=== PATIENT | female | born 1940 | race Caucasian/White ===

== ENCOUNTER → 2018-11-24 | Outpatient (REF) | payer MEDICARE, BC ==
[2018-11-24 12:59] LABS: AMORPHOUS SEDIMENT SMALL (NEGATIVE); APPEARANCE, URINE CLEAR (CLEAR); BACTERIA, URINE AUTO NEGATIVE (NEGATIVE); BILIRUBIN, URINE AUTO NEGATIVE (NEGATIVE); BLOOD, URINE BLOOD NEGATIVE (NEGATIVE); COLOR, URINE AMBER (YELLOW); GLUCOSE, URINE (UA) AUTO NEGATIVE (NEGATIVE); KETONE, URINE AUTO NEGATIVE (NEGATIVE); LEUKOCYTE ESTERASE, URINE AUTO NEGATIVE (NEGATIVE); MUCUS, URINE SMALL (NEGATIVE); NITRITE, URINE AUTO POSITIVE (NEGATIVE); PROTEIN, URINE AUTO NEGATIVE (NEGATIVE); RBC, URINE AUTO 1 /HPF (0-3); SPECIFIC GRAVITY URINE AUTO 1.008 (1.002-1.035); SQUAMOUS EPITHELIAL CELL UR AU 1 /HPF (0-6); WBC, URINE AUTO 4 /HPF (0-3)
== END ==
LOC: M LAB REF 12:25
PROVIDERS: ATTEND Obstetrics & Gynecology
DX: Z87.440 Personal history of urinary (tract) infections (principal); R39.89 Other symptoms and signs involving the genitourinary system

== ENCOUNTER → 2019-01-10 | Outpatient (REF) | payer MEDICARE, BC ==
[2019-01-10 19:41] LABS: APPEARANCE, URINE CLOUDY (CLEAR); BACTERIA, URINE AUTO 1+ (NEGATIVE); BILIRUBIN, URINE AUTO NEGATIVE (NEGATIVE); BLOOD, URINE BLOOD NEGATIVE (NEGATIVE); CALCIUM OXALATE CRYSTALS LARGE; COLOR, URINE YELLOW (YELLOW); GLUCOSE, URINE (UA) AUTO NEGATIVE (NEGATIVE); KETONE, URINE AUTO NEGATIVE (NEGATIVE); LEUKOCYTE ESTERASE, URINE AUTO NEGATIVE (NEGATIVE); NITRITE, URINE AUTO NEGATIVE (NEGATIVE); PROTEIN, URINE AUTO NEGATIVE (NEGATIVE); RBC, URINE AUTO 0 /HPF (0-3); SPECIFIC GRAVITY URINE AUTO 1.006 (1.002-1.035); SQUAMOUS EPITHELIAL CELL UR AU 2 /HPF (0-6); UROBILINOGEN, URINE AUTO 0.2 mg/dL (0.0-2.0); WBC, URINE AUTO 0 /HPF (0-3)
== END ==
LOC: M LAB REF 16:43
PROVIDERS: ATTEND Obstetrics & Gynecology
DX: N30.21 Other chronic cystitis with hematuria (principal)

== ENCOUNTER → 2019-11-19 | Outpatient (REF) | payer MEDICARE, BC ==
[2019-11-19 19:21] LABS: APPEARANCE, URINE HAZY (CLEAR); BACTERIA, URINE AUTO NEGATIVE (NEGATIVE); BILIRUBIN, URINE AUTO NEGATIVE (NEGATIVE); BLOOD, URINE BLOOD NEGATIVE (NEGATIVE); CALCIUM OXALATE CRYSTALS SMALL; COLOR, URINE YELLOW (YELLOW); GLUCOSE, URINE (UA) AUTO NEGATIVE (NEGATIVE); KETONE, URINE AUTO NEGATIVE (NEGATIVE); LEUKOCYTE ESTERASE, URINE AUTO TRACE (NEGATIVE); MUCUS, URINE SMALL (NEGATIVE); NITRITE, URINE AUTO NEGATIVE (NEGATIVE); PROTEIN, URINE AUTO NEGATIVE (NEGATIVE); RBC, URINE AUTO 2 /HPF (0-3); SQUAMOUS EPITHELIAL CELL UR AU 2 /HPF (0-6); TRANSITIONAL EPITHELIAL AUTO <1 /HPF; UROBILINOGEN, URINE AUTO 0.2 mg/dL (0.0-2.0); WBC, URINE AUTO 4 /HPF (0-3)
== END ==
LOC: M LAB REF 16:48
PROVIDERS: ATTEND Obstetrics & Gynecology
DX: N39.0 Urinary tract infection, site not specified (principal); N39.3 Stress incontinence (female) (male)

== ENCOUNTER → 2020-01-14 | Outpatient (REF) | payer MEDICARE, BC ==
[2020-03-01 19:24] LABS: APPEARANCE, URINE CLEAR (CLEAR); BACTERIA, URINE AUTO 1+ (NEGATIVE); BILIRUBIN, URINE AUTO NEGATIVE (NEGATIVE); BLOOD, URINE BLOOD NEGATIVE (NEGATIVE); COLOR, URINE STRAW (YELLOW); GLUCOSE, URINE (UA) AUTO NEGATIVE (NEGATIVE); KETONE, URINE AUTO NEGATIVE (NEGATIVE); LEUKOCYTE ESTERASE, URINE AUTO NEGATIVE (NEGATIVE); NITRITE, URINE AUTO NEGATIVE (NEGATIVE); PROTEIN, URINE AUTO NEGATIVE (NEGATIVE); RBC, URINE AUTO 0 /HPF (0-3); SPECIFIC GRAVITY URINE AUTO 1.005 (1.002-1.035); SQUAMOUS EPITHELIAL CELL UR AU 0 /HPF (0-6); UROBILINOGEN, URINE AUTO 0.2 mg/dL (0.0-2.0); WBC, URINE AUTO 1 /HPF (0-3)
== END ==
LOC: M LAB REF 09:59
PROVIDERS: ATTEND Obstetrics & Gynecology
DX: N39.0 Urinary tract infection, site not specified (principal)

== ENCOUNTER → 2021-11-04 | Outpatient (CLI) | payer MEDICARE, BC | LOC: M PLAIMG 15:08 | PROVIDERS: ATTEND Internal Medicine Pulmonary Disease | DX: R06.00 Dyspnea, unspecified (principal) ==

== ENCOUNTER 2021-11-17 12:00 | Inpatient (IN) | payer MEDICARE, BC ==
[~2021-11-17] VITALS: Ht 160 cm; Wt 79.0 kg
[2021-11-17 12:52] LABS: BASO # 0.1 10^3/uL (0.0-0.2); BASO % 0.7 % (0.0-1.0); EOS # 0.2 10^3/uL (0.0-0.5); EOS % 2.9 % (0.0-3.0); HEMATOCRIT 37.2 % (36.0-47.0); HEMOGLOBIN 12.4 g/dl (12.0-15.5); LYMPH # 1.9 10^3/uL (1.5-5.0); MEAN CORPUSCULAR HGB CONC 33.3 g/dl (32.0-36.5); MEAN CORPUSCULAR VOLUME 89.9 fl (80.0-96.0); MONO # 0.8 10^3/uL (0.0-0.8); MONO % 9.3 % (2.0-8.0); NEUTROPHILS % 62.1 % (36.0-66.0); PLATELET COUNT, AUTOMATED 291 10^3/uL (150-450); RED BLOOD COUNT 4.14 10^6/uL (4.00-5.40); WHITE BLOOD COUNT 8.1 10^3/uL (4.0-10.0)
[2021-11-17 12:55] LABS: INR 0.93; PROTHROMBIN TIME 12.9 SECONDS (12.7-14.5)
[2021-11-17 12:56] LABS: PARTIAL THROMBOPLASTIN TIME 27.5 SECONDS (25.9-37.0)
[2021-11-17 12:58] LABS: ALBUMIN 3.8 GM/DL (3.2-5.2); ALT/SGPT 25 U/L (12-78); BILIRUBIN,DIRECT < 0.1 MG/DL (0.0-0.2); BILIRUBIN,TOTAL 0.3 MG/DL (0.2-1.0); LIPASE 148 U/L (73-393); TOTAL PROTEIN 6.6 GM/DL (6.4-8.2)
[2021-11-17] MEDS ORDERED: NS 2,350 ML in IV 1 EA IV ONE (13:15)
[2021-11-17] MEDS ORDERED: cefTRIAXone SOD 2 GM in D5W MINI-BAG PLUS 50 ML IV ONE (13:15)
[2021-11-17] MEDS ORDERED: ISOVUE-370 76% 100ML VIAL As Ordered ONE (13:19)
[2021-11-17] MEDS ORDERED: D5W 50ML As Ordered ONE ×2 (13:29→13:30)
[2021-11-17] MEDS ORDERED: ACETAMINOPHEN TAB 650MG DOSE (2X325MG) PO PRN (16:40)
[2021-11-17] MEDS ORDERED: MAALOX 30 ML SUSP *UDC PO PRN (16:40)
[2021-11-17] MEDS ORDERED: MOM 30ML SUSPENSION UDC PO PRN (16:40)
[2021-11-17] MEDS ORDERED: LEMB10TA PO (17:17)
[2021-11-17] MEDS ORDERED: DICY20TA20 PO (17:17)
[2021-11-17] MEDS ORDERED: DULO20CA27 PO (17:17)
[2021-11-17] MEDS ORDERED: FERR1TAB8 PO (17:17)
[2021-11-17] MEDS ORDERED: XIFA550T PO (17:17)
[2021-11-17] MEDS ORDERED: LEMB5TAB PO (17:17)
[2021-11-17] MEDS ORDERED: PROAAER10 INH (17:17)
[2021-11-17] MEDS ORDERED: LISI10TA22 PO (17:27)
[2021-11-17] MEDS ORDERED: LEVO75TA4 PO (17:27)
[2021-11-17] MEDS ORDERED: ESTR0.1C5 PV (17:27)
[2021-11-17] MEDS ORDERED: METH-855 PO (17:27)
[2021-11-17] MEDS ORDERED: PEPE50CA PO (17:27)
[2021-11-17] MEDS ORDERED: HOME MED LIST COMPLETE! XX SCH (17:30)
[2021-11-17 17:54] LABS: CK-MB VALUE MASS < 1.0 NG/ML (<3.6); CPK CREATINE PHOSPHOKINASE 33 U/L (26-192); MB/CK RELATIVE INDEX 3.03 (< OR =4)
[2021-11-17 22:20] VITALS: BP 136/73
[2021-11-18 06:00] VITALS: BP 135/74
[2021-11-18 06:26] LABS: HEMATOCRIT 33.2 % (36.0-47.0); HEMOGLOBIN 10.7 g/dl (12.0-15.5); MEAN CORPUSCULAR HEMOGLOBIN 29.6 pg (27.0-33.0); MEAN CORPUSCULAR HGB CONC 32.2 g/dl (32.0-36.5); PLATELET COUNT, AUTOMATED 240 10^3/uL (150-450); RED BLOOD COUNT 3.61 10^6/uL (4.00-5.40); WHITE BLOOD COUNT 7.2 10^3/uL (4.0-10.0)
[2021-11-18 06:57] LABS: CALCIUM LEVEL 8.5 MG/DL (8.8-10.2); CREATININE FOR GFR 1.09 MG/DL (0.55-1.30); GLOMERULAR FILTRATION RATE 51.4 (>32); MAGNESIUM LEVEL 1.8 MG/DL (1.8-2.4); POTASSIUM SERUM 3.3 MEQ/L (3.5-5.1)
[2021-11-18] MEDS ORDERED: POTASSIUM CHLORIDE 10MEQ SR TABLET PO ONE (07:30)
[2021-11-18] MEDS: ENOXAPARIN 40MG/0.4ML SYRINGE (J1650 PER 10MG) SC SCH (09:56)
[2021-11-18] MEDS ORDERED: ALBUTEROL 90 MCG/ACT 8GM HFA INHALER INH PRN (10:00)
[2021-11-18] MEDS ORDERED: DICYCLOMINE 10 MG CAP PO PRN (10:00)
[2021-11-18] MEDS ORDERED: SIMETHICONE 80MG CHEW TAB PO PRN (11:15)
[2021-11-18] MEDS: rifAXIMin 550 MG TAB (XIFAXAN) PO SCH ×3 (11:28→21:25)
[2021-11-18] MEDS: LEVOTHYROXINE 75MCG TABLET (0.075MG) PO SCH (11:29)
[2021-11-18 14:00] VITALS: BP 128/64
[2021-11-18] MEDS ORDERED: DULoxetine 20 MG CAP (CYMBALTA) PO SCH (21:00)
[2021-11-18 22:00] VITALS: BP 142/78
[2021-11-19 05:53] LABS: HEMATOCRIT 32.9 % (36.0-47.0); HEMOGLOBIN 10.8 g/dl (12.0-15.5); MEAN CORPUSCULAR HEMOGLOBIN 30.4 pg (27.0-33.0); MEAN CORPUSCULAR HGB CONC 32.8 g/dl (32.0-36.5); MEAN CORPUSCULAR VOLUME 92.7 fl (80.0-96.0); PLATELET COUNT, AUTOMATED 232 10^3/uL (150-450); RED BLOOD COUNT 3.55 10^6/uL (4.00-5.40); WHITE BLOOD COUNT 7.4 10^3/uL (4.0-10.0)
[2021-11-19 06:00] VITALS: BP 138/76
[2021-11-19] MEDS: LEVOTHYROXINE 75MCG TABLET (0.075MG) PO SCH (06:03)
[2021-11-19 06:24] LABS: CALCIUM LEVEL 9.3 MG/DL (8.8-10.2); CREATININE FOR GFR 1.09 MG/DL (0.55-1.30); GLOMERULAR FILTRATION RATE 51.4 (>32); MAGNESIUM LEVEL 1.9 MG/DL (1.8-2.4); POTASSIUM SERUM 3.6 MEQ/L (3.5-5.1)
[2021-11-19] MEDS ORDERED: SIME80TA16 PO (09:01)
[2021-11-19] MEDS: ENOXAPARIN 40MG/0.4ML SYRINGE (J1650 PER 10MG) SC SCH (09:20)
[2021-11-19 09:22] VITALS: BP 137/77
[2021-11-19] MEDS: rifAXIMin 550 MG TAB (XIFAXAN) PO SCH (09:22)
== END 2021-11-19 12:55 | disposition home or self-care (01) | DRG 392 ==
LOC: EDBD 12:00 → M ED 12:00 → M ED INP 16:37 → M MS5PR 22:04
PROVIDERS: ADMIT Family Medicine; ATTEND Family Medicine
DX: R10.9 Unspecified abdominal pain (principal); E87.2 Acidosis; I10 Essential (primary) hypertension; R06.02 Shortness of breath; E03.9 Hypothyroidism, unspecified; Z79.899 Other long term (current) drug therapy; Z88.8 Allergy status to other drugs, medicaments and biological substances; Z87.891 Personal history of nicotine dependence; Z66 Do not resuscitate

== ENCOUNTER → 2021-12-29 | Outpatient (CLI) | payer MEDICARE, BC ==
[~2021-12-29] MED LIST: DICY20TA20 PO; DULO20CA27 PO; ESTR0.1C5 PV; FERR1TAB8 PO; LEMB10TA PO; LEMB5TAB PO; LEVO75TA4 PO; LISI10TA22 PO; METH-855 PO; PEPE50CA PO; PROAAER10 INH; SIME80TA16 PO; XIFA550T PO
== END ==
LOC: M PLAIMG 11:00
PROVIDERS: ATTEND Internal Medicine Pulmonary Disease
DX: R06.00 Dyspnea, unspecified (principal)

== ENCOUNTER → 2022-01-20 | Outpatient (CLI) | payer MEDICARE, BC ==
[2022-01-20 17:46] LABS: C REACTIVE PROTEIN QUANTITATIV < 0.30 MG/DL (0.00-0.30); RHEUMATOID FACTOR QUANT < 10.0 IU/ML (<15.0)
[2022-02-02 15:07] LABS: ANA (HEP2) Positive (.); ANCA-ATYPICAL <1:20 titer (Neg:<1:20); ANGIOTENSIN 1 CONVERTING ENZYM 6 U/L (14-82); ANTI DS-DNA AB Negative (Negative); ANTI JO-1 ANTIBODIES <20 Units (<20); ANTINUCLEAR ANTIBODIES DIRECT Negative (Negative); ASPERGILLUS FUMIGATUS AB Negative (Negative); AUREOBASIDIUM PULLULANS Negative (Negative); CYCLIC CITRULLINATED PEPTIDE 5 units (0-19); CYTOPLASMIC NEUTROP AB ANCA-C <1:20 titer (Neg:<1:20); MICROPOLYSPORA FAENI AB Negative (Negative); PERINUCLEAR AB ANCA-P <1:20 titer (Neg:<1:20); PIGEON SERUM AB Negative (Negative); RNP ANTIBODIES 0.4 AI (0.0-0.9); SJOGREN'S ANTI SS-A <0.2 AI (0.0-0.9); SJOGREN'S ANTI SS-B <0.2 AI (0.0-0.9); SMITH ANTIBODIES <0.2 AI (0.0-0.9); THERMOACTINOMYCES SACCHARI Negative (Negative); THERMOACTINOMYCES VULGARIS Negative (Negative)
== END ==
LOC: M PLALAB 14:41
PROVIDERS: ATTEND Internal Medicine Pulmonary Disease
DX: J84.9 Interstitial pulmonary disease, unspecified (principal)

== ENCOUNTER 2022-10-06 12:58 | Inpatient (IN) | payer MEDICARE, BC ==
[~2022-10-06] VITALS: Ht 157.5 cm; Wt 64.5 kg
[2022-10-06] MEDS ORDERED: ONDANSETRON 4MG 2ML VIAL IV ONE (17:15)
[2022-10-06] MEDS ORDERED: NS 1,000 ML IV ONE (17:15)
[2022-10-06] MEDS ORDERED: TRAZ-257 PO (17:22)
[2022-10-06] MEDS ORDERED: MIRA3350 PO (17:24)
[2022-10-06 17:59] LABS: BASO % 0.5 % (0.0-1.0); EOS # 0.2 10^3/uL (0.0-0.5); EOS % 2.9 % (0.0-3.0); HEMATOCRIT 33.7 % (36.0-47.0); HEMOGLOBIN 11.3 g/dl (12.0-15.5); LYMPH % 26.9 % (24.0-44.0); MEAN CORPUSCULAR HEMOGLOBIN 28.8 pg (27.0-33.0); MEAN CORPUSCULAR HGB CONC 33.5 g/dl (32.0-36.5); MONO # 0.7 10^3/uL (0.0-0.8); MONO % 9.3 % (2.0-8.0); NEUTROPHILS # 4.5 10^3/uL (1.5-8.5); PLATELET COUNT, AUTOMATED 274 10^3/uL (150-450); RED BLOOD COUNT 3.92 10^6/uL (4.00-5.40); WHITE BLOOD COUNT 7.5 10^3/uL (4.0-10.0)
[2022-10-06 18:11] LABS: ERYTHROCYTE SEDIMENTATION RATE 56 mm/hr (0-30)
[2022-10-06 18:12] LABS: APPEARANCE, URINE CLEAR (CLEAR); BACTERIA, URINE AUTO NEGATIVE (NEGATIVE); BILIRUBIN, URINE AUTO NEGATIVE (NEGATIVE); BLOOD, URINE BLOOD NEGATIVE (NEGATIVE); COLOR, URINE YELLOW (YELLOW); GLUCOSE, URINE (UA) AUTO NEGATIVE (NEGATIVE); KETONE, URINE AUTO TRACE mg/dL (NEGATIVE); LEUKOCYTE ESTERASE, URINE AUTO NEGATIVE (NEGATIVE); NITRITE, URINE AUTO NEGATIVE (NEGATIVE); PROTEIN, URINE AUTO NEGATIVE (NEGATIVE); RBC, URINE AUTO 0 /HPF (0-3); SPECIFIC GRAVITY URINE AUTO 1.014 (1.002-1.035); SQUAMOUS EPITHELIAL CELL UR AU 1 /HPF (0-6); UROBILINOGEN, URINE AUTO 0.2 mg/dL (0.0-2.0); WBC, URINE AUTO 0 /HPF (0-3)
[2022-10-06 18:25] LABS: IRON (FE) 38 UG/DL (50-170); TOTAL IRON BINDING CAPACITY 238 UG/DL (250-425)
[2022-10-06 18:28] LABS: FERRITIN 346.7 NG/ML (7.3-270.7); VITAMIN B12 LEVEL 500 PG/ML (211-911)
[2022-10-06 19:24] LABS: C REACTIVE PROTEIN QUANTITATIV < 0.40 MG/DL (<1.0)
[2022-10-06 19:26] LABS: ALBUMIN 3.8 G/DL (3.2-5.2); ALKALINE PHOSPHATASE 77 U/L (46-116); ALT/SGPT 30 U/L (7.0-40); AST/SGOT 28 U/L (<34); BILIRUBIN,TOTAL 0.4 MG/DL (0.3-1.2); BLOOD UREA NITROGEN 54 MG/DL (9-23); CALCIUM LEVEL 9.4 MG/DL (8.3-10.6); CARBON DIOXIDE LEVEL 18 MMOL/L (20-31); CHLORIDE LEVEL 104 MMOL/L (98-107); CREATININE FOR GFR 1.63 MG/DL (0.55-1.30); GLOMERULAR FILTRATION RATE 32.2 (>32); GLUCOSE, FASTING 84 MG/DL (74-106); MAGNESIUM LEVEL 2.3 MG/DL (1.8-2.4); SODIUM LEVEL 134 MMOL/L (136-145); TOTAL PROTEIN 6.9 G/DL (5.7-8.2)
[2022-10-06 19:38] LABS: FOLATE > 24.00 NG/ML (>5.4)
[2022-10-06] MEDS ORDERED: POTA10TA67 PO (22:51)
[2022-10-06] MEDS ORDERED: TRAZ-186 PO (22:51)
[2022-10-06] MEDS ORDERED: MIRA1POW3 PO (22:51)
[2022-10-06] MEDS ORDERED: ESTR1CRE PV (22:51)
[2022-10-06] MEDS ORDERED: HOME MED LIST COMPLETE! XX SCH ×2 (22:55→23:05)
[2022-10-06] MEDS ORDERED: NS 500 ML IV ONE (23:05)
[2022-10-06] MEDS ORDERED: NS 1,000 ML IV SCH (23:05)
[2022-10-06] MEDS: DULoxetine 20MG CAP (CYMBALTA) PO SCH (23:41)
[2022-10-06] MEDS: KCL 10MEQ/100ML SWI (KRUN) 10 MEQ in IV 1 EA IV SCH (23:41)
[2022-10-07 00:36] VITALS: BP 130/64
[2022-10-07] MEDS: KCL 10MEQ/100ML SWI (KRUN) 10 MEQ in IV 1 EA IV SCH ×5 (01:12→13:55)
[2022-10-07 05:41] VITALS: BP 124/62
[2022-10-07] MEDS: LEVOTHYROXINE 75MCG TABLET (0.075MG) PO SCH (06:05)
[2022-10-07 06:55] LABS: CALCIUM LEVEL 8.5 MG/DL (8.3-10.6); CREATININE FOR GFR 1.38 MG/DL (0.55-1.30); GLOMERULAR FILTRATION RATE 39.1 (>32); POTASSIUM SERUM 2.9 MMOL/L (3.5-5.1)
[2022-10-07] MEDS: KCL 20MEQ in NS 1000ML 1,000 ML IV SCH (07:59)
[2022-10-07] MEDS: HEPARIN SOD (PORCINE) 5000UNITS/ML 1ML VIAL/SYRINGE SC SCH ×2 (07:59→20:29)
[2022-10-07] MEDS: FERROUS SULFATE 325MG TAB PO SCH (09:00)
[2022-10-07 10:20] LABS: THYROID STIMULATING HORMONE 0.417 uIU/ML (0.55-4.78)
[2022-10-07 12:59] LABS: FREE T4 1.42 NG/DL (0.89-1.76)
[2022-10-07 14:00] VITALS: BP 125/64
[2022-10-07] MEDS: FIDAXOMICIN 200 MG TAB (DIFICID) PO SCH ×2 (14:54→20:29)
[2022-10-07 19:21] LABS: CALCIUM LEVEL 8.7 MG/DL (8.3-10.6); CREATININE FOR GFR 1.25 MG/DL (0.55-1.30); GLOMERULAR FILTRATION RATE 43.8 (>32); POTASSIUM SERUM 3.2 MMOL/L (3.5-5.1)
[2022-10-07 20:05] VITALS: BP 128/66
[2022-10-07] MEDS ORDERED: POTASSIUM CHLORIDE 10MEQ SR TABLET PO ONE (20:05)
[2022-10-07] MEDS: DULoxetine 20MG CAP (CYMBALTA) PO SCH (20:29)
[2022-10-08] MEDS: KCL 20MEQ in NS 1000ML 1,000 ML IV SCH (00:53)
[2022-10-08] MEDS: LEVOTHYROXINE 75MCG TABLET (0.075MG) PO SCH (05:46)
[2022-10-08 06:03] VITALS: BP 130/67
[2022-10-08 07:38] VITALS: BP 131/67
[2022-10-08 08:12] LABS: BASO % 0.6 % (0.0-1.0); EOS # 0.2 10^3/uL (0.0-0.5); EOS % 3.3 % (0.0-3.0); HEMATOCRIT 29.5 % (36.0-47.0); HEMOGLOBIN 9.9 g/dl (12.0-15.5); LYMPH # 1.4 10^3/uL (1.5-5.0); LYMPH % 26.3 % (24.0-44.0); MEAN CORPUSCULAR HEMOGLOBIN 29.6 pg (27.0-33.0); MEAN CORPUSCULAR HGB CONC 33.6 g/dl (32.0-36.5); MEAN CORPUSCULAR VOLUME 88.3 fl (80.0-96.0); MONO # 0.5 10^3/uL (0.0-0.8); MONO % 9.2 % (2.0-8.0); NEUTROPHILS # 3.3 10^3/uL (1.5-8.5); NEUTROPHILS % 60.2 % (36.0-66.0); PLATELET COUNT, AUTOMATED 214 10^3/uL (150-450); RED BLOOD COUNT 3.34 10^6/uL (4.00-5.40); WHITE BLOOD COUNT 5.4 10^3/uL (4.0-10.0)
[2022-10-08 08:49] LABS: CALCIUM LEVEL 8.3 MG/DL (8.3-10.6); CREATININE FOR GFR 1.22 MG/DL (0.55-1.30)
[2022-10-08] MEDS: HEPARIN SOD (PORCINE) 5000UNITS/ML 1ML VIAL/SYRINGE SC SCH ×3 (09:00→20:55)
[2022-10-08] MEDS: FERROUS SULFATE 325MG TAB PO SCH (09:15)
[2022-10-08] MEDS: FIDAXOMICIN 200 MG TAB (DIFICID) PO SCH ×2 (09:15→20:48)
[2022-10-08] MEDS: LACTOBACILLUS ACIDOPHILUS CAP (BACID) PO SCH ×2 (11:48→18:50)
[2022-10-08] MEDS: LR 1,000 ML IV SCH ×2 (11:48→20:48)
[2022-10-08 14:18] VITALS: BP 158/85
[2022-10-08] MEDS: DULoxetine 20MG CAP (CYMBALTA) PO SCH (20:48)
[2022-10-08 21:15] VITALS: BP 156/83
[2022-10-08] MEDS ORDERED: traZODone 25MG PER 1/2 TABLET PO ONE (22:20)
[2022-10-09] MEDS: LEVOTHYROXINE 75MCG TABLET (0.075MG) PO SCH (06:09)
[2022-10-09] MEDS: LR 1,000 ML IV SCH ×2 (06:09→18:49)
[2022-10-09 06:12] VITALS: BP 152/82
[2022-10-09 06:54] LABS: BASO # 0.1 10^3/uL (0.0-0.2); BASO % 0.7 % (0.0-1.0); EOS # 0.3 10^3/uL (0.0-0.5); EOS % 3.9 % (0.0-3.0); HEMATOCRIT 29.1 % (36.0-47.0); HEMOGLOBIN 9.5 g/dl (12.0-15.5); MEAN CORPUSCULAR HEMOGLOBIN 28.8 pg (27.0-33.0); MEAN CORPUSCULAR HGB CONC 32.6 g/dl (32.0-36.5); MEAN CORPUSCULAR VOLUME 88.2 fl (80.0-96.0); MONO # 0.6 10^3/uL (0.0-0.8); MONO % 8.2 % (2.0-8.0); NEUTROPHILS % 57.8 % (36.0-66.0); PLATELET COUNT, AUTOMATED 194 10^3/uL (150-450); WHITE BLOOD COUNT 6.9 10^3/uL (4.0-10.0)
[2022-10-09 07:30] LABS: CALCIUM LEVEL 8.4 MG/DL (8.3-10.6); CREATININE FOR GFR 1.03 MG/DL (0.55-1.30); GLOMERULAR FILTRATION RATE 54.7 (>32); POTASSIUM SERUM 3.1 MMOL/L (3.5-5.1)
[2022-10-09 08:35] LABS: MAGNESIUM LEVEL 1.3 MG/DL (1.8-2.4)
[2022-10-09] MEDS: HEPARIN SOD (PORCINE) 5000UNITS/ML 1ML VIAL/SYRINGE SC SCH ×3 (09:00→20:09)
[2022-10-09] MEDS: KCL 10MEQ/100ML SWI (KRUN) 10 MEQ in IV 1 EA IV SCH ×6 (10:00→17:36)
[2022-10-09] MEDS: FIDAXOMICIN 200 MG TAB (DIFICID) PO SCH ×2 (10:27→20:06)
[2022-10-09] MEDS: LACTOBACILLUS ACIDOPHILUS CAP (BACID) PO SCH ×2 (10:27→17:37)
[2022-10-09] MEDS: FERROUS SULFATE 325MG TAB PO SCH (10:27)
[2022-10-09] MEDS ORDERED: MAG SULF 1GM/100ML (MAG RUN) 1 GM in IV 1 EA IV SCH ×2 (13:00→21:55)
[2022-10-09 14:00] VITALS: BP 150/80
[2022-10-09] MEDS ORDERED: POTASSIUM CHLORIDE 10MEQ SR TABLET PO ONE (15:00)
[2022-10-09] MEDS: MAG SULF 1GM/100ML (MAG RUN) 1 GM in IV 1 EA IV SCH ×5 (15:16→20:06)
[2022-10-09] MEDS: DULoxetine 20MG CAP (CYMBALTA) PO SCH (20:06)
[2022-10-09] MEDS ORDERED: RAMELTEON 8 MG TAB (ROZEREM) PO ONE (20:20)
[2022-10-09 21:31] VITALS: BP 148/76
[2022-10-10] MEDS: LR 1,000 ML IV SCH ×2 (02:20→09:33)
[2022-10-10 06:01] VITALS: BP 119/64
[2022-10-10] MEDS: LEVOTHYROXINE 75MCG TABLET (0.075MG) PO SCH (06:11)
[2022-10-10 08:03] LABS: BASO # 0.1 10^3/uL (0.0-0.2); BASO % 0.8 % (0.0-1.0); EOS # 0.4 10^3/uL (0.0-0.5); EOS % 4.8 % (0.0-3.0); HEMATOCRIT 29.8 % (36.0-47.0); HEMOGLOBIN 9.9 g/dl (12.0-15.5); LYMPH # 1.9 10^3/uL (1.5-5.0); LYMPH % 26.5 % (24.0-44.0); MEAN CORPUSCULAR HEMOGLOBIN 29.5 pg (27.0-33.0); MEAN CORPUSCULAR HGB CONC 33.2 g/dl (32.0-36.5); MEAN CORPUSCULAR VOLUME 88.7 fl (80.0-96.0); MONO # 0.6 10^3/uL (0.0-0.8); MONO % 8.4 % (2.0-8.0); NEUTROPHILS # 4.3 10^3/uL (1.5-8.5); NEUTROPHILS % 59.2 % (36.0-66.0); PLATELET COUNT, AUTOMATED 201 10^3/uL (150-450); RED BLOOD COUNT 3.36 10^6/uL (4.00-5.40); WHITE BLOOD COUNT 7.2 10^3/uL (4.0-10.0)
[2022-10-10 08:35] LABS: CALCIUM LEVEL 8.7 MG/DL (8.3-10.6); CREATININE FOR GFR 1.09 MG/DL (0.55-1.30); GLOMERULAR FILTRATION RATE 51.3 (>32); MAGNESIUM LEVEL 2.3 MG/DL (1.8-2.4); POTASSIUM SERUM 3.8 MMOL/L (3.5-5.1)
[2022-10-10] MEDS: HEPARIN SOD (PORCINE) 5000UNITS/ML 1ML VIAL/SYRINGE SC SCH ×2 (09:00→20:17)
[2022-10-10] MEDS: LACTOBACILLUS ACIDOPHILUS CAP (BACID) PO SCH ×2 (09:33→18:00)
[2022-10-10] MEDS: FERROUS SULFATE 325MG TAB PO SCH (09:33)
[2022-10-10] MEDS: FIDAXOMICIN 200 MG TAB (DIFICID) PO SCH ×2 (09:33→20:18)
[2022-10-10] MEDS ORDERED: POTASSIUM CHLORIDE 10MEQ SR TABLET PO ONE (11:00)
[2022-10-10 14:00] VITALS: BP 137/67
[2022-10-10] MEDS: DULoxetine 20MG CAP (CYMBALTA) PO SCH (20:18)
[2022-10-10 23:27] VITALS: BP 141/75
[2022-10-11] MEDS: LR 1,000 ML IV SCH ×2 (01:40→10:52)
[2022-10-11] MEDS: LEVOTHYROXINE 75MCG TABLET (0.075MG) PO SCH (05:17)
[2022-10-11 06:24] VITALS: BP 136/72
[2022-10-11 07:09] LABS: BASO # 0.1 10^3/uL (0.0-0.2); BASO % 0.7 % (0.0-1.0); EOS # 0.4 10^3/uL (0.0-0.5); EOS % 5.9 % (0.0-3.0); HEMATOCRIT 29.3 % (36.0-47.0); HEMOGLOBIN 9.6 g/dl (12.0-15.5); LYMPH # 2.1 10^3/uL (1.5-5.0); LYMPH % 27.9 % (24.0-44.0); MEAN CORPUSCULAR HEMOGLOBIN 28.9 pg (27.0-33.0); MEAN CORPUSCULAR HGB CONC 32.8 g/dl (32.0-36.5); MEAN CORPUSCULAR VOLUME 88.3 fl (80.0-96.0); MONO # 0.6 10^3/uL (0.0-0.8); MONO % 7.9 % (2.0-8.0); NEUTROPHILS # 4.3 10^3/uL (1.5-8.5); NEUTROPHILS % 57.3 % (36.0-66.0); PLATELET COUNT, AUTOMATED 180 10^3/uL (150-450); RED BLOOD COUNT 3.32 10^6/uL (4.00-5.40); WHITE BLOOD COUNT 7.5 10^3/uL (4.0-10.0)
[2022-10-11 07:24] LABS: CALCIUM LEVEL 8.5 MG/DL (8.3-10.6); CREATININE FOR GFR 1.06 MG/DL (0.55-1.30); MAGNESIUM LEVEL 1.7 MG/DL (1.8-2.4); POTASSIUM SERUM 3.4 MMOL/L (3.5-5.1)
[2022-10-11] MEDS: HEPARIN SOD (PORCINE) 5000UNITS/ML 1ML VIAL/SYRINGE SC SCH ×3 (09:00→20:08)
[2022-10-11] MEDS: FIDAXOMICIN 200 MG TAB (DIFICID) PO SCH ×2 (09:21→20:07)
[2022-10-11] MEDS: FERROUS SULFATE 325MG TAB PO SCH (09:21)
[2022-10-11] MEDS: LACTOBACILLUS ACIDOPHILUS CAP (BACID) PO SCH ×2 (09:22→17:18)
[2022-10-11] MEDS ORDERED: POTASSIUM CHLORIDE 10MEQ SR TABLET PO ONE (11:50)
[2022-10-11] MEDS: MAG SULF 1GM/100ML (MAG RUN) 1 GM in IV 1 EA IV SCH ×2 (12:06→13:34)
[2022-10-11] MEDS: DULoxetine 20MG CAP (CYMBALTA) PO SCH (20:07)
[2022-10-11] MEDS ORDERED: traZODone 100 MG TAB PO SCH (21:00)
[2022-10-11 22:37] VITALS: BP 119/64
[2022-10-12 06:01] VITALS: BP 120/64
[2022-10-12] MEDS: LEVOTHYROXINE 75MCG TABLET (0.075MG) PO SCH (06:05)
[2022-10-12 06:35] LABS: BASO % 0.5 % (0.0-1.0); EOS # 0.4 10^3/uL (0.0-0.5); EOS % 5.2 % (0.0-3.0); HEMOGLOBIN 10.3 g/dl (12.0-15.5); LYMPH # 1.9 10^3/uL (1.5-5.0); LYMPH % 25.2 % (24.0-44.0); MEAN CORPUSCULAR HEMOGLOBIN 28.6 pg (27.0-33.0); MEAN CORPUSCULAR HGB CONC 32.2 g/dl (32.0-36.5); MEAN CORPUSCULAR VOLUME 88.9 fl (80.0-96.0); MONO # 0.6 10^3/uL (0.0-0.8); MONO % 7.4 % (2.0-8.0); NEUTROPHILS # 4.6 10^3/uL (1.5-8.5); NEUTROPHILS % 61.2 % (36.0-66.0); PLATELET COUNT, AUTOMATED 183 10^3/uL (150-450); WHITE BLOOD COUNT 7.5 10^3/uL (4.0-10.0)
[2022-10-12 07:03] LABS: CALCIUM LEVEL 8.6 MG/DL (8.3-10.6); CREATININE FOR GFR 1.16 MG/DL (0.55-1.30); GLOMERULAR FILTRATION RATE 47.7 (>32); POTASSIUM SERUM 3.7 MMOL/L (3.5-5.1)
[2022-10-12] MEDS ORDERED: RISATAB3 PO (07:41)
[2022-10-12] MEDS ORDERED: FIDA200TA PO (07:41)
[2022-10-12] MEDS: HEPARIN SOD (PORCINE) 5000UNITS/ML 1ML VIAL/SYRINGE SC SCH (09:00)
[2022-10-12] MEDS: FIDAXOMICIN 200 MG TAB (DIFICID) PO SCH (09:28)
[2022-10-12] MEDS: FERROUS SULFATE 325MG TAB PO SCH (09:28)
[2022-10-12] MEDS: LACTOBACILLUS ACIDOPHILUS CAP (BACID) PO SCH (09:28)
[2022-10-12 09:30] VITALS: BP 133/80
[2022-10-12] MEDS ORDERED: FLUCONAZOLE 50MG TABLET PO ONE (11:00)
== END 2022-10-12 11:29 | disposition home or self-care (01) | DRG 372 ==
LOC: M ED 12:58 → M ED INP 23:06 → ENRESERV 23:37 → M MS5PR 10-07 00:49
PROVIDERS: ADMIT Internal Medicine; ATTEND Internal Medicine
DX: A04.71 Enterocolitis due to Clostridium difficile, recurrent (principal); N17.9 Acute kidney failure, unspecified; I10 Essential (primary) hypertension; R63.4 Abnormal weight loss; E03.9 Hypothyroidism, unspecified; F39 Unspecified mood [affective] disorder; D50.9 Iron deficiency anemia, unspecified; E86.0 Dehydration; E87.6 Hypokalemia; E83.42 Hypomagnesemia; B37.9 Candidiasis, unspecified; Z88.8 Allergy status to other drugs, medicaments and biological substances; Z79.899 Other long term (current) drug therapy

== ENCOUNTER 2022-10-12 11:48 | Outpatient (CLI) | payer MEDICARE, BC ==
[~2022-10-12] VITALS: Ht 157.5 cm; Wt 64.5 kg
[~2022-10-12 11:48] MED LIST changes: +ESTR1CRE PV; +FIDA200TA PO; +MIRA1POW3 PO; +MIRA3350 PO; +POTA10TA67 PO; +RISATAB3 PO; +TRAZ-186 PO; +TRAZ-257 PO
[2022-10-12 14:00] VITALS: BP 132/70
[2022-10-12] MEDS ORDERED: BEZLOTOXUMAB 650 MG in NS 100 ML IV ONE (14:00)
[2022-10-12 14:58] VITALS: BP 116/75
== END 2022-10-12 15:00 | disposition home or self-care (01) ==
LOC: M INFU 11:48 → M MS5PR 12:09 → M INFU 15:00
PROVIDERS: ATTEND Internal Medicine Infectious Disease
DX: A04.71 Enterocolitis due to Clostridium difficile, recurrent (principal); Z88.1 Allergy status to other antibiotic agents
CPT/HCPCS: 96365; J0565

== ENCOUNTER 2022-11-01 15:57 | Outpatient (CLI) | payer MEDICARE, BC ==
[~2022-11-01] VITALS: Ht 152.4 cm; Wt 64.5 kg
[2022-11-01 16:20] VITALS: BP 157/68
[2022-11-01] MEDS ORDERED: FECAL MICROBIOTA, LIVE-JSLM 150ML BAG (REBYOTA) RC ONE (16:30)
[2022-11-01 16:52] VITALS: BP 137/65
== END 2022-11-01 17:20 ==
LOC: M OPCLI4PR 15:57
PROVIDERS: ATTEND Internal Medicine Gastroenterology
DX: A04.71 Enterocolitis due to Clostridium difficile, recurrent (principal); Z88.1 Allergy status to other antibiotic agents
CPT/HCPCS: C9399; G0455

== ENCOUNTER → 2022-11-23 | Outpatient (REF) | payer MEDICARE, BC | LOC: M SFHCPLAZ 15:10 | PROVIDERS: ATTEND Internal Medicine Infectious Disease | DX: A04.71 Enterocolitis due to Clostridium difficile, recurrent (principal) ==

== ENCOUNTER 2022-12-02 12:58 | Day surgery (SDC) | payer MEDICARE, BC ==
[~2022-12-02] VITALS: Ht 160 cm; Wt 62.7 kg
[~2022-12-02 12:58] MED LIST changes: +NS 1,000 ML IV ONE
[2022-12-02] MEDS ORDERED: FECAL MICROBIOTA TRANSPLANT PREPARATION 35ML BAG XX ONE (14:00)
[2022-12-02] MEDS ORDERED: propofoL 200 MG/20 ML VIAL As Ordered ONE ×2 (15:20→15:28)
[2022-12-02 15:43] VITALS: TEMP 98.6
[2022-12-02 16:20] VITALS: BP 189/88; O2SAT 98
== END 2022-12-02 16:45 | disposition home or self-care (01) ==
LOC: M OPP 12:58
PROVIDERS: ATTEND Internal Medicine Gastroenterology
DX: A04.71 Enterocolitis due to Clostridium difficile, recurrent (principal); A04.72 Enterocolitis due to Clostridium difficile, not specified as recurrent; Z79.899 Other long term (current) drug therapy; Z79.818 Long term (current) use of other agents affecting estrogen receptors and estrogen levels; Z88.1 Allergy status to other antibiotic agents

== ENCOUNTER 2023-02-08 18:53 | Inpatient (IN) | payer MEDICARE, BC ==
[~2023-02-08] VITALS: Ht 162.6 cm; Wt 61.7 kg
[~2023-02-08 18:53] MED LIST changes: -NS 1,000 ML IV ONE
[2023-02-08] MEDS ORDERED: NS 500 ML IV ONE (19:45)
[2023-02-08 20:56] LABS: BASO % 0.4 % (0.0-1.0); EOS # 0.1 10^3/uL (0.0-0.5); EOS % 1.9 % (0.0-3.0); HEMATOCRIT 27.7 % (36.0-47.0); HEMOGLOBIN 9.6 g/dl (12.0-15.5); LYMPH # 1.8 10^3/uL (1.5-5.0); LYMPH % 24.4 % (24.0-44.0); MEAN CORPUSCULAR HEMOGLOBIN 30.2 pg (27.0-33.0); MEAN CORPUSCULAR HGB CONC 34.7 g/dl (32.0-36.5); MEAN CORPUSCULAR VOLUME 87.1 fl (80.0-96.0); MONO # 0.7 10^3/uL (0.0-0.8); MONO % 9.9 % (2.0-8.0); NEUTROPHILS # 4.7 10^3/uL (1.5-8.5); PLATELET COUNT, AUTOMATED 196 10^3/uL (150-450); RED BLOOD COUNT 3.18 10^6/uL (4.00-5.40); WHITE BLOOD COUNT 7.4 10^3/uL (4.0-10.0)
[2023-02-08] MEDS ORDERED: ACETAMINOPHEN *IV* 1,000 MG in IV 1 EA IV ONE (21:10)
[2023-02-08 21:34] LABS: ALBUMIN 2.9 G/DL (3.2-5.2); BILIRUBIN,TOTAL 0.6 MG/DL (0.3-1.2); CALCIUM LEVEL 8.2 MG/DL (8.3-10.6); CREATININE FOR GFR 1.18 MG/DL (0.55-1.30); GLOMERULAR FILTRATION RATE 46.8 (>32); POTASSIUM SERUM 2.8 MMOL/L (3.5-5.1); TOTAL PROTEIN 5.4 G/DL (5.7-8.2)
[2023-02-08] MEDS: GASTROGRAFIN SOLUTION 30ML PO SCH ×2 (22:22→23:00)
[2023-02-08] MEDS ORDERED: KCL 10MEQ/100ML SWI (KRUN) 10 MEQ in IV 1 EA IV ONE (22:30)
[2023-02-08] MEDS ORDERED: POTASSIUM CHLORIDE 10% LIQ 20MEQ/15ML UDC PO ONE (22:30)
[2023-02-09] MEDS ORDERED: ISOVUE-370 76% 100ML VIAL As Ordered ONE (00:17)
[2023-02-09] MEDS ORDERED: VITMTA PO (03:53)
[2023-02-09] MEDS ORDERED: TRAZ-257 PO (03:53)
[2023-02-09] MEDS ORDERED: RISATAB3 PO (03:53)
[2023-02-09] MEDS ORDERED: CRANCAP10 PO (03:53)
[2023-02-09] MEDS ORDERED: DICY1CAP8 PO (03:54)
[2023-02-09] MEDS ORDERED: LISI10TA22 PO (03:54)
[2023-02-09] MEDS ORDERED: HOME MED LIST COMPLETE! XX SCH (03:55)
[2023-02-09] MEDS ORDERED: ACETAMINOPHEN TAB 650MG DOSE (2X325MG) PO PRN (05:40)
[2023-02-09] MEDS ORDERED: DICYCLOMINE 10 MG CAP PO PRN (05:40)
[2023-02-09 06:33] LABS: BASO % 0.3 % (0.0-1.0); EOS # 0.2 10^3/uL (0.0-0.5); EOS % 3.1 % (0.0-3.0); HEMATOCRIT 29.8 % (36.0-47.0); HEMOGLOBIN 9.9 g/dl (12.0-15.5); LYMPH # 1.6 10^3/uL (1.5-5.0); LYMPH % 25.6 % (24.0-44.0); MEAN CORPUSCULAR HEMOGLOBIN 29.9 pg (27.0-33.0); MEAN CORPUSCULAR HGB CONC 33.2 g/dl (32.0-36.5); MONO # 0.7 10^3/uL (0.0-0.8); MONO % 11.2 % (2.0-8.0); NEUTROPHILS # 3.8 10^3/uL (1.5-8.5); NEUTROPHILS % 59.5 % (36.0-66.0); PLATELET COUNT, AUTOMATED 188 10^3/uL (150-450); RED BLOOD COUNT 3.31 10^6/uL (4.00-5.40); WHITE BLOOD COUNT 6.4 10^3/uL (4.0-10.0)
[2023-02-09] MEDS: LEVOTHYROXINE 75MCG TABLET (0.075MG) PO SCH (06:52)
[2023-02-09 07:08] LABS: CALCIUM LEVEL 8.4 MG/DL (8.3-10.6); CREATININE FOR GFR 1.36 MG/DL (0.55-1.30); GLOMERULAR FILTRATION RATE 39.7 (>32); MAGNESIUM LEVEL 1.9 MG/DL (1.8-2.4); POTASSIUM SERUM 2.9 MMOL/L (3.5-5.1)
[2023-02-09] MEDS ORDERED: KCL 40MEQ in NS 1000ML 1,000 ML IV SCH (08:05)
[2023-02-09] MEDS: MULTIVITAMINS/MINERALS THERAP 1 TAB PO SCH (08:59)
[2023-02-09] MEDS: POTASSIUM CHLORIDE 10MEQ SR TABLET PO SCH (08:59)
[2023-02-09] MEDS: LACTOBACILLUS ACIDOPHILUS CAP (BACID) PO SCH (08:59)
[2023-02-09] MEDS: FERROUS SULFATE 325MG TAB PO SCH (08:59)
[2023-02-09] MEDS: HEPARIN SOD (PORCINE) 5000UNITS/ML 1ML VIAL/SYRINGE SQ SCH ×3 (09:00→20:14)
[2023-02-09] MEDS ORDERED: ENOXAPARIN 40MG/0.4ML SYRINGE (J1650 PER 10MG) SC SCH (09:00)
[2023-02-09] MEDS ORDERED: POTASSIUM CHLORIDE 10MEQ SR TABLET PO ONE ×2 (12:00→19:50)
[2023-02-09] MEDS ORDERED: NS 1,000 ML IV SCH (13:00)
[2023-02-09] MEDS ORDERED: LOPERAMIDE 2 MG CAPLET PO SCH (14:00)
[2023-02-09 16:10] VITALS: BP 139/65; TEMP 97.7; O2SAT 97
[2023-02-09 18:00] VITALS: BP 142/68; TEMP 97.9; O2SAT 97
[2023-02-09] MEDS: LOPERAMIDE 2 MG CAPLET PO SCH (18:01)
[2023-02-09 18:19] LABS: CALCIUM LEVEL 8.3 MG/DL (8.3-10.6); CREATININE FOR GFR 1.23 MG/DL (0.55-1.30); GLOMERULAR FILTRATION RATE 44.6 (>32); POTASSIUM SERUM 3.1 MMOL/L (3.5-5.1)
[2023-02-09] MEDS: KCL 40MEQ in NS 1000ML 1,000 ML IV SCH (20:14)
[2023-02-09] MEDS ORDERED: DULoxetine 20MG CAP (CYMBALTA) PO SCH (21:00)
[2023-02-09] MEDS ORDERED: traZODone 100 MG TAB PO SCH (21:00)
[2023-02-09 22:00] VITALS: BP 137/68; TEMP 97.7; O2SAT 97
[2023-02-10] MEDS: LOPERAMIDE 2 MG CAPLET PO SCH ×2 (00:10→06:03)
[2023-02-10 02:00] VITALS: BP 124/60; TEMP 97.3; O2SAT 95
[2023-02-10 06:00] VITALS: BP 119/56; TEMP 97.3; O2SAT 95
[2023-02-10] MEDS: KCL 40MEQ in NS 1000ML 1,000 ML IV SCH (06:03)
[2023-02-10] MEDS: LEVOTHYROXINE 75MCG TABLET (0.075MG) PO SCH (06:03)
[2023-02-10 06:15] LABS: BASO % 0.7 % (0.0-1.0); EOS # 0.3 10^3/uL (0.0-0.5); EOS % 4.3 % (0.0-3.0); HEMATOCRIT 29.1 % (36.0-47.0); HEMOGLOBIN 9.4 g/dl (12.0-15.5); LYMPH # 1.5 10^3/uL (1.5-5.0); LYMPH % 26.1 % (24.0-44.0); MEAN CORPUSCULAR HEMOGLOBIN 30.1 pg (27.0-33.0); MEAN CORPUSCULAR HGB CONC 32.3 g/dl (32.0-36.5); MEAN CORPUSCULAR VOLUME 93.3 fl (80.0-96.0); MONO # 0.7 10^3/uL (0.0-0.8); MONO % 11.7 % (2.0-8.0); NEUTROPHILS # 3.3 10^3/uL (1.5-8.5); NEUTROPHILS % 56.5 % (36.0-66.0); PLATELET COUNT, AUTOMATED 191 10^3/uL (150-450); RED BLOOD COUNT 3.12 10^6/uL (4.00-5.40); WHITE BLOOD COUNT 5.8 10^3/uL (4.0-10.0)
[2023-02-10 06:53] LABS: CALCIUM LEVEL 8.3 MG/DL (8.3-10.6); CREATININE FOR GFR 1.21 MG/DL (0.55-1.30); GLOMERULAR FILTRATION RATE 45.5 (>32); POTASSIUM SERUM 4.4 MMOL/L (3.5-5.1)
[2023-02-10] MEDS ORDERED: POTA-164 PO (07:46)
[2023-02-10] MEDS ORDERED: LOPE2TAB12 PO (07:46)
[2023-02-10] MEDS ORDERED: LISI5TAB11 PO (07:46)
[2023-02-10] MEDS: HEPARIN SOD (PORCINE) 5000UNITS/ML 1ML VIAL/SYRINGE SQ SCH (09:00)
[2023-02-10] MEDS: FERROUS SULFATE 325MG TAB PO SCH (09:02)
[2023-02-10] MEDS: MULTIVITAMINS/MINERALS THERAP 1 TAB PO SCH (09:03)
[2023-02-10] MEDS: LACTOBACILLUS ACIDOPHILUS CAP (BACID) PO SCH (09:03)
[2023-02-10] MEDS: POTASSIUM CHLORIDE 10MEQ SR TABLET PO SCH (09:03)
[2023-02-10 10:00] VITALS: BP 123/67; TEMP 97.2; O2SAT 92
[2023-02-11 08:32] LABS: CA19-9 TUMOR MARKER,CARBOHYDRA 32.6 U/ML (<35.0)
== END 2023-02-10 12:36 | disposition home or self-care (01) | DRG 392 ==
LOC: M ED 19:53 → M ED INP 02-09 04:46 → ENRESERV 02-09 15:34 → M MSPAV 02-09 16:04
PROVIDERS: ADMIT Internal Medicine; ATTEND Internal Medicine Nephrology
DX: K52.9 Noninfective gastroenteritis and colitis, unspecified (principal); N17.9 Acute kidney failure, unspecified; E87.6 Hypokalemia; I10 Essential (primary) hypertension; E03.9 Hypothyroidism, unspecified; F32.A Depression, unspecified; H91.93 Unspecified hearing loss, bilateral; F41.9 Anxiety disorder, unspecified; D50.9 Iron deficiency anemia, unspecified; Z66 Do not resuscitate; E86.0 Dehydration; Z88.8 Allergy status to other drugs, medicaments and biological substances; Z79.899 Other long term (current) drug therapy

== ENCOUNTER → 2023-03-03 | Outpatient (CLI) | payer MEDICARE, BC ==
[~2023-03-03] MED LIST changes: +CRANCAP10 PO; +DICY1CAP8 PO; +LISI5TAB11 PO; +LOPE2TAB12 PO; +POTA-164 PO; +VITMTA PO
== END ==
LOC: M PLARAD 13:29
PROVIDERS: ATTEND Internal Medicine Gastroenterology
DX: D37.8 Neoplasm of uncertain behavior of other specified digestive organs (principal); K86.2 Cyst of pancreas

== ENCOUNTER 2023-05-02 20:55 | Observation (INO) | payer MEDICARE, BC ==
[~2023-05-02] VITALS: Ht 160 cm; Wt 58.5 kg
[2023-05-02] MEDS ORDERED: CREO3600 (21:06)
[2023-05-02 22:20] LABS: BASO # 0.1 10^3/uL (0.0-0.2); BASO % 0.7 % (0.0-1.0); EOS # 0.3 10^3/uL (0.0-0.5); EOS % 2.6 % (0.0-3.0); HEMATOCRIT 35.6 % (36.0-47.0); HEMOGLOBIN 12.2 g/dl (12.0-15.5); INR 1.03; LYMPH # 3.3 10^3/uL (1.5-5.0); LYMPH % 33.7 % (24.0-44.0); MEAN CORPUSCULAR HEMOGLOBIN 29.9 pg (27.0-33.0); MEAN CORPUSCULAR HGB CONC 34.3 g/dl (32.0-36.5); MEAN CORPUSCULAR VOLUME 87.3 fl (80.0-96.0); MONO % 9.8 % (2.0-8.0); NEUTROPHILS # 5.1 10^3/uL (1.5-8.5); NEUTROPHILS % 52.9 % (36.0-66.0); PLATELET COUNT, AUTOMATED 239 10^3/uL (150-450); PROTHROMBIN TIME 13.2 SECONDS (12.5-14.5); RED BLOOD COUNT 4.08 10^6/uL (4.00-5.40); WHITE BLOOD COUNT 9.7 10^3/uL (4.0-10.0)
[2023-05-02 22:21] LABS: PARTIAL THROMBOPLASTIN TIME 26.2 SECONDS (24.8-34.2)
[2023-05-02 22:47] LABS: ALBUMIN 3.8 G/DL (3.2-5.2); BILIRUBIN,DIRECT 0.1 MG/DL (<0.4); BILIRUBIN,TOTAL 0.4 MG/DL (0.3-1.2); CALCIUM LEVEL 9.3 MG/DL (8.3-10.6); CK-MB VALUE MASS 1.1 NG/ML (<3.6); CREATININE FOR GFR 1.75 MG/DL (0.55-1.30); GLOMERULAR FILTRATION RATE 29.6 (>32); MB/CK RELATIVE INDEX 1.66 (< OR =4); POTASSIUM SERUM 2.8 MMOL/L (3.5-5.1); TOTAL PROTEIN 6.7 G/DL (5.7-8.2)
[2023-05-02 23:47] LABS: CK-MB VALUE MASS 1.2 NG/ML (<3.6)
[2023-05-02 23:48] LABS: MB/CK RELATIVE INDEX 1.79 (< OR =4)
[2023-05-03 00:17] LABS: MAGNESIUM LEVEL 2.2 MG/DL (1.8-2.4)
[2023-05-03] MEDS ORDERED: POTASSIUM CHLORIDE 10MEQ SR TABLET PO ONE ×2 (00:20→09:00)
[2023-05-03] MEDS ORDERED: KCL 10MEQ/100ML SWI (KRUN) 10 MEQ in IV 1 EA IV ONE (00:20)
[2023-05-03 00:30] LABS: VENOUS BASE EXCESS -4.5 (-2.0-2.0); VENOUS HCO3 20.2 MMOL/L (23.0-27.0); VENOUS O2 SATURATION 90.1 % (60.0-80.0); VENOUS PARTIAL PRESSURE CO2 36.2 mmHg (38.0-50.0); VENOUS PARTIAL PRESSURE O2 60.6 mmHg (30.0-50.0); VENOUS PH 7.365 UNITS (7.330-7.430); VENOUS STANDARD HCO3 20.6 MMOL/L; VENOUS TOTAL CO2 21.3 MMOL/L (24.0-28.0)
[2023-05-03 01:06] LABS: RSV AMPLIFICATION NEGATIVE (NEGATIVE)
[2023-05-03] MEDS ORDERED: HYDROMORPHONE HCL 0.5 MG/ 0.5 ML SYRINGE IV PRN (03:00)
[2023-05-03] MEDS ORDERED: ONDANSETRON 4MG 2ML VIAL IV PRN (03:00)
[2023-05-03] MEDS ORDERED: ACETAMINOPHEN TAB 650MG DOSE (2X325MG) PO PRN (03:00)
[2023-05-03] MEDS ORDERED: POTA-150 PO (03:08)
[2023-05-03] MEDS ORDERED: CREO3600 PO ×2 (03:08)
[2023-05-03] MEDS ORDERED: CLOB5CR TOP (03:08)
[2023-05-03] MEDS ORDERED: CRAN400C PO (03:08)
[2023-05-03] MEDS ORDERED: LOPE1CAP5 PO (03:08)
[2023-05-03] MEDS ORDERED: AZO-95TA3 PO (03:08)
[2023-05-03] MEDS ORDERED: HOME MED LIST COMPLETE! XX SCH (03:10)
[2023-05-03] MEDS ORDERED: POTASSIUM CHLORIDE INJ 30 MEQ in NS 1,000 ML IV SCH (04:00)
[2023-05-03 04:40] VITALS: BP 150/71; TEMP 96.3; O2SAT 96
[2023-05-03] MEDS: LEVOTHYROXINE 75MCG TABLET (0.075MG) PO SCH (05:21)
[2023-05-03 07:14] LABS: CALCIUM LEVEL 8.7 MG/DL (8.3-10.6); CREATININE FOR GFR 1.49 MG/DL (0.55-1.30); GLOMERULAR FILTRATION RATE 35.7 (>32); POTASSIUM SERUM 3.2 MMOL/L (3.5-5.1)
[2023-05-03] MEDS ORDERED: CREON-12 CAPSULE PO SCH (08:00)
[2023-05-03] MEDS ORDERED: FERROUS SULFATE 325MG TAB PO SCH (09:00)
[2023-05-03] MEDS: LOPERAMIDE 2 MG CAPLET PO SCH (09:00)
[2023-05-03] MEDS: HEPARIN SOD (PORCINE) 5000UNITS/ML 1ML VIAL/SYRINGE SC SCH ×2 (09:00→21:00)
[2023-05-03] MEDS: MULTIVITAMINS/MINERALS THERAP 1 TAB PO SCH (09:04)
[2023-05-03] MEDS: CREON-24 CAPSULE PO SCH ×3 (09:05→18:12)
[2023-05-03 14:01] VITALS: BP 113/65; TEMP 97.2; O2SAT 100
[2023-05-03] MEDS ORDERED: POLYETHYLENE GLYCOL (MIRALAX) 238GM BOTTLE PO ONE (18:00)
[2023-05-03 20:20] VITALS: BP 115/64; TEMP 97.3; O2SAT 98
[2023-05-03] MEDS: DULoxetine 20MG CAP (CYMBALTA) PO SCH (21:05)
[2023-05-03] MEDS: traZODone 100 MG TAB PO SCH (21:05)
[2023-05-03] MEDS: BUDESONIDE EC 3MG CAP (ENTOCORT EC) PO SCH (23:21)
[2023-05-04] MEDS ORDERED: BUDESONIDE EC 3MG CAP (ENTOCORT EC) PO ONE
[2023-05-04] MEDS: LEVOTHYROXINE 75MCG TABLET (0.075MG) PO SCH ×2 (05:33→06:20)
[2023-05-04 06:16] VITALS: BP 119/64; TEMP 97.5; O2SAT 97
[2023-05-04] MEDS ORDERED: POLYETHYLENE GLYCOL (MIRALAX) 238GM BOTTLE PO ONE (07:00)
[2023-05-04] MEDS: LOPERAMIDE 2 MG CAPLET PO SCH (09:00)
[2023-05-04] MEDS: MULTIVITAMINS/MINERALS THERAP 1 TAB PO SCH (09:00)
[2023-05-04] MEDS: HEPARIN SOD (PORCINE) 5000UNITS/ML 1ML VIAL/SYRINGE SC SCH ×2 (09:00→20:42)
[2023-05-04] MEDS: CREON-24 CAPSULE PO SCH ×3 (09:25→17:56)
[2023-05-04] MEDS: BUDESONIDE EC 3MG CAP (ENTOCORT EC) PO SCH (09:25)
[2023-05-04 13:36] VITALS: BP 114/68; TEMP 97.3; O2SAT 96
[2023-05-04] MEDS ORDERED: LIDOCAINE 2% 100MG/5ML SDV (FOR ANES.) As Ordered ONE (13:53)
[2023-05-04] MEDS ORDERED: propofoL 200 MG/20 ML VIAL As Ordered ONE (13:53)
[2023-05-04 15:30] VITALS: BP 152/79; TEMP 97.2; O2SAT 100
[2023-05-04 16:00] VITALS: BP 141/72; TEMP 97.2; O2SAT 99
[2023-05-04 17:00] VITALS: BP 125/71; TEMP 97.2; O2SAT 99
[2023-05-04] MEDS: DULoxetine 20MG CAP (CYMBALTA) PO SCH (20:43)
[2023-05-04] MEDS: traZODone 100 MG TAB PO SCH (20:43)
[2023-05-05 05:45] VITALS: BP 149/77; TEMP 96.8; O2SAT 98
[2023-05-05] MEDS: LEVOTHYROXINE 75MCG TABLET (0.075MG) PO SCH (06:00)
[2023-05-05 06:15] LABS: HEMATOCRIT 34.3 % (36.0-47.0); HEMOGLOBIN 11.2 g/dl (12.0-15.5); MEAN CORPUSCULAR HEMOGLOBIN 29.7 pg (27.0-33.0); MEAN CORPUSCULAR HGB CONC 32.7 g/dl (32.0-36.5); PLATELET COUNT, AUTOMATED 193 10^3/uL (150-450); RED BLOOD COUNT 3.77 10^6/uL (4.00-5.40); WHITE BLOOD COUNT 7.7 10^3/uL (4.0-10.0)
[2023-05-05 06:52] LABS: CALCIUM LEVEL 8.7 MG/DL (8.3-10.6); CREATININE FOR GFR 1.29 MG/DL (0.55-1.30); GLOMERULAR FILTRATION RATE 42.1 (>32); MAGNESIUM LEVEL 1.9 MG/DL (1.8-2.4); POTASSIUM SERUM 3.2 MMOL/L (3.5-5.1)
[2023-05-05 08:30] VITALS: BP 151/75; TEMP 97.3; O2SAT 97
[2023-05-05] MEDS: MULTIVITAMINS/MINERALS THERAP 1 TAB PO SCH (08:56)
[2023-05-05] MEDS: BUDESONIDE EC 3MG CAP (ENTOCORT EC) PO SCH (08:57)
[2023-05-05] MEDS: CREON-24 CAPSULE PO SCH ×2 (08:57→12:36)
[2023-05-05] MEDS: LOPERAMIDE 2 MG CAPLET PO SCH (08:59)
[2023-05-05] MEDS: HEPARIN SOD (PORCINE) 5000UNITS/ML 1ML VIAL/SYRINGE SC SCH (08:59)
[2023-05-05 13:50] VITALS: BP 146/82; TEMP 96.6; O2SAT 100
[2023-05-05] MEDS ORDERED: BUDE3CAP5 PO (14:04)
[2023-05-05] MEDS ORDERED: POTASSIUM CHLORIDE 10MEQ SR TABLET PO ONE (14:05)
[2023-05-10 20:07] LABS: CALPROTECTIN STOOL 23 ug/g (0-120); PANCREATIC ELASTASE STOOL 236 (>200)
== END 2023-05-05 15:10 | disposition home or self-care (01) ==
LOC: M ED 20:55 → M ED INP 20:56 → UNDOADMOB 05-03 03:00 → M MS5PR 05-03 04:38 → M ED INP 05-03 04:38 → UNDODISOB 05-05 15:10
PROVIDERS: ADMIT Internal Medicine; ATTEND Internal Medicine
DX: K62.4 Stenosis of anus and rectum (principal); K52.9 Noninfective gastroenteritis and colitis, unspecified; K57.30 Diverticulosis of large intestine without perforation or abscess without bleeding; K64.8 Other hemorrhoids; E87.6 Hypokalemia; E86.0 Dehydration; E87.20 Acidosis, unspecified; I10 Essential (primary) hypertension; D64.9 Anemia, unspecified; E07.9 Disorder of thyroid, unspecified; F32.A Depression, unspecified; M10.9 Gout, unspecified; A04.71 Enterocolitis due to Clostridium difficile, recurrent; Z87.440 Personal history of urinary (tract) infections; Z86.39 Personal history of other endocrine, nutritional and metabolic disease; Z80.3 Family history of malignant neoplasm of breast; Z88.1 Allergy status to other antibiotic agents; Z79.899 Other long term (current) drug therapy; Z79.02 Long term (current) use of antithrombotics/antiplatelets; Z79.890 Hormone replacement therapy; Z66 Do not resuscitate
CPT/HCPCS: 36415; 45380; 71045; 80047; 80048; 80076; 82550; 82553; 82656; 82803; 83605; 83690; 83735; 83993; 84484; 85025; 85027; 85610; 85730; 87040; 87507; 87631; 88305; 93005; 93041; 96365; 97161; 97165; 99285; G0378

== ENCOUNTER → 2023-11-17 | Outpatient (CLI) | payer MEDICARE, BC ==
[~2023-11-17] MED LIST changes: +AMMO12LO TOP; +AZO-95TA3 PO; +BUDE3CAP5 PO; +CLOB5CR TOP; +CRANBERRY400 MG PO; +CRANCAP4 PO; +CREO3600; +CREO3600 PO; +LISI20TA33 PO; +LOPE1CAP5 PO; -MIRA1POW3 PO; +MIRA33506 PO; +MULT-40 PO; +POTA-150 PO; +PROHANCE 279.3MG/ML 15ML VIAL ONE; +RA M10TA PO; +SYNT88TA2 PO
== END ==
LOC: M PLAIMG 13:41
PROVIDERS: ATTEND Internal Medicine Gastroenterology
DX: D37.8 Neoplasm of uncertain behavior of other specified digestive organs (principal); K86.81 Exocrine pancreatic insufficiency; K86.2 Cyst of pancreas

== ENCOUNTER 2023-11-18 19:31 | Inpatient (IN) | payer MEDICARE, BC ==
[~2023-11-18] VITALS: Ht 160 cm; Wt 70.3 kg
[~2023-11-18 19:31] MED LIST changes: -AMMO12LO TOP; -CRANCAP4 PO; -LISI20TA33 PO; -MULT-40 PO; -PROHANCE 279.3MG/ML 15ML VIAL ONE; -RA M10TA PO; -SYNT88TA2 PO
[2023-11-18 20:50] LABS: BASO % 0.4 % (0.0-1.0); EOS # 0.1 10^3/uL (0.0-0.5); EOS % 1.5 % (0.0-3.0); HEMATOCRIT 31.7 % (36.0-47.0); HEMOGLOBIN 10.8 g/dl (12.0-15.5); LYMPH # 1.1 10^3/uL (1.5-5.0); LYMPH % 13.8 % (24.0-44.0); MEAN CORPUSCULAR HEMOGLOBIN 30.4 pg (27.0-33.0); MEAN CORPUSCULAR HGB CONC 34.1 g/dl (32.0-36.5); MEAN CORPUSCULAR VOLUME 89.3 fl (80.0-96.0); MONO # 0.5 10^3/uL (0.0-0.8); MONO % 6.3 % (2.0-8.0); NEUTROPHILS # 6.3 10^3/uL (1.5-8.5); NEUTROPHILS % 77.1 % (36.0-66.0); PLATELET COUNT, AUTOMATED 245 10^3/uL (150-450); RED BLOOD COUNT 3.55 10^6/uL (4.00-5.40); WHITE BLOOD COUNT 8.1 10^3/uL (4.0-10.0)
[2023-11-18 21:08] LABS: ALBUMIN 3.4 G/DL (3.2-5.2); ALKALINE PHOSPHATASE 83 U/L (46-116); ALT/SGPT 14 U/L (7.0-40); AST/SGOT 9 U/L (<34); BILIRUBIN,DIRECT 0.2 MG/DL (<0.4); BILIRUBIN,TOTAL 0.5 MG/DL (0.3-1.2); BLOOD UREA NITROGEN 23 MG/DL (9-23); CALCIUM LEVEL 9.4 MG/DL (8.3-10.6); CARBON DIOXIDE LEVEL 22 MMOL/L (20-31); CHLORIDE LEVEL 106 MMOL/L (98-107); GLOMERULAR FILTRATION RATE 45.8 (>32); GLUCOSE, FASTING 95 MG/DL (74-106); POTASSIUM SERUM 4.1 MMOL/L (3.5-5.1); SODIUM LEVEL 137 MMOL/L (136-145); TOTAL PROTEIN 6.4 G/DL (5.7-8.2)
[2023-11-18 21:17] LABS: CK-MB VALUE MASS < 1.0 NG/ML (<3.6)
[2023-11-18 21:18] LABS: CPK CREATINE PHOSPHOKINASE 31 U/L (34-145); MB/CK RELATIVE INDEX 3.22 (< OR =4)
[2023-11-18] MEDS: NS 1,000 ML IV SCH (21:54)
[2023-11-19] MEDS ORDERED: CRANCAP4 PO (01:17)
[2023-11-19] MEDS ORDERED: AMMO12LO TOP (01:17)
[2023-11-19] MEDS ORDERED: LISI20TA33 PO (01:17)
[2023-11-19] MEDS ORDERED: SYNT88TA2 PO (01:17)
[2023-11-19] MEDS ORDERED: RA M10TA PO (01:17)
[2023-11-19] MEDS ORDERED: MULT-40 PO (01:17)
[2023-11-19] MEDS ORDERED: HOME MED LIST COMPLETE! XX SCH (01:20)
[2023-11-19] MEDS ORDERED: CLOBETASOL PROPIONATE EMOLLIENT 0.05% CR 60 GM TOP SCH (01:30)
[2023-11-19] MEDS ORDERED: LACTIC ACID 12% LOTION 225 GM BTL TOP PRN (01:30)
[2023-11-19] MEDS ORDERED: RAMELTEON 8 MG TAB (ROZEREM) PO PRN (01:30)
[2023-11-19] MEDS: NS 1,000 ML IV SCH (03:58)
[2023-11-19 04:10] VITALS: BP 142/98; TEMP 98.8; O2SAT 96
[2023-11-19] MEDS: LEVOTHYROXINE 88MCG TABLET (0.088 MG) PO SCH (06:12)
[2023-11-19 07:17] LABS: BASO % 0.4 % (0.0-1.0); EOS # 0.2 10^3/uL (0.0-0.5); LYMPH # 1.2 10^3/uL (1.5-5.0); LYMPH % 16.6 % (24.0-44.0); MEAN CORPUSCULAR HEMOGLOBIN 31.1 pg (27.0-33.0); MEAN CORPUSCULAR HGB CONC 34.5 g/dl (32.0-36.5); MEAN CORPUSCULAR VOLUME 90.1 fl (80.0-96.0); MONO # 0.6 10^3/uL (0.0-0.8); MONO % 7.8 % (2.0-8.0); NEUTROPHILS % 71.5 % (36.0-66.0); PLATELET COUNT, AUTOMATED 198 10^3/uL (150-450); RED BLOOD COUNT 3.22 10^6/uL (4.00-5.40); WHITE BLOOD COUNT 7.1 10^3/uL (4.0-10.0)
[2023-11-19 07:46] LABS: CREATININE FOR GFR 1.2 MG/DL (0.55-1.30); GLOMERULAR FILTRATION RATE 45.8 (>32); MAGNESIUM LEVEL 1.5 MG/DL (1.8-2.4); POTASSIUM SERUM 3.8 MMOL/L (3.5-5.1)
[2023-11-19 08:00] VITALS: BP 150/83; TEMP 97.9
[2023-11-19] MEDS ORDERED: CREON-12 CAPSULE PO PRN (08:00)
[2023-11-19] MEDS: POTASSIUM CHLORIDE 10MEQ SR TABLET PO SCH (08:15)
[2023-11-19] MEDS: DULoxetine 20MG CAP (CYMBALTA) PO SCH (08:15)
[2023-11-19] MEDS: MULTIVITAMINS/MINERALS THERAP 1 TAB PO SCH (08:15)
[2023-11-19] MEDS: CREON-12 CAPSULE PO SCH (08:15)
[2023-11-19] MEDS: [UNRECOGNIZED DRUG - OTHER] SC SCH (08:16)
[2023-11-19 09:17] LABS: CA19-9 TUMOR MARKER,CARBOHYDRA 27.1 U/ML (<35.0)
[2023-11-19 12:00] VITALS: BP 150/82; TEMP 97.9
[2023-11-19 13:29] LABS: INR 0.95; PARTIAL THROMBOPLASTIN TIME 23.1 SECONDS (24.8-34.2); PROTHROMBIN TIME 12.4 SECONDS (12.5-14.5)
[2023-11-19 13:39] LABS: COLLAGEN EPINEPHRINE 106 SECONDS (74-162)
[2023-11-19] MEDS: MAG SULF 1GM/100ML (MAG RUN) 1 GM in IV 1 EA IV SCH (13:40)
[2023-11-19 16:00] VITALS: BP 146/82; TEMP 97.9
[2023-11-19] MEDS: traZODone 100 MG TAB PO SCH (20:13)
[2023-11-19 20:19] VITALS: BP 135/70; TEMP 97.9; O2SAT 96
[2023-11-20] VITALS: BP 130/60; TEMP 98.1; O2SAT 92
[2023-11-20 04:24] VITALS: BP 151/75; TEMP 97.3; O2SAT 93
[2023-11-20 07:11] LABS: BASO % 0.3 % (0.0-1.0); EOS # 0.3 10^3/uL (0.0-0.5); EOS % 3.8 % (0.0-3.0); HEMATOCRIT 28.3 % (36.0-47.0); HEMOGLOBIN 9.3 g/dl (12.0-15.5); LYMPH # 1.6 10^3/uL (1.5-5.0); LYMPH % 21.7 % (24.0-44.0); MEAN CORPUSCULAR HEMOGLOBIN 30.1 pg (27.0-33.0); MEAN CORPUSCULAR HGB CONC 32.9 g/dl (32.0-36.5); MEAN CORPUSCULAR VOLUME 91.6 fl (80.0-96.0); MONO # 0.7 10^3/uL (0.0-0.8); NEUTROPHILS # 4.7 10^3/uL (1.5-8.5); NEUTROPHILS % 64.4 % (36.0-66.0); PLATELET COUNT, AUTOMATED 183 10^3/uL (150-450); RED BLOOD COUNT 3.09 10^6/uL (4.00-5.40); WHITE BLOOD COUNT 7.3 10^3/uL (4.0-10.0)
[2023-11-20 07:32] LABS: CALCIUM LEVEL 8.2 MG/DL (8.3-10.6); CREATININE FOR GFR 1.1 MG/DL (0.55-1.30); GLOMERULAR FILTRATION RATE 50.6 (>32)
[2023-11-20 08:00] VITALS: TEMP 97.5; O2SAT 97
[2023-11-20 08:21] VITALS: BP 133/84
[2023-11-21] MEDS ORDERED: FERROUS SULFATE 325MG TAB PO SCH (09:00)
== END 2023-11-20 12:53 | disposition home or self-care (01) | DRG 392 ==
LOC: M ED 19:31 → M ED INP 23:52 → M MSPAV 11-19 04:04
PROVIDERS: ADMIT Family Medicine; ATTEND Internal Medicine
DX: A08.11 Acute gastroenteropathy due to Norwalk agent (principal); K86.2 Cyst of pancreas; E83.42 Hypomagnesemia; Z88.8 Allergy status to other drugs, medicaments and biological substances; Z79.899 Other long term (current) drug therapy; I11.0 Hypertensive heart disease with heart failure; E03.9 Hypothyroidism, unspecified; F41.9 Anxiety disorder, unspecified; I50.9 Heart failure, unspecified; H90.3 Sensorineural hearing loss, bilateral; F32.A Depression, unspecified; K62.4 Stenosis of anus and rectum; Z87.891 Personal history of nicotine dependence; G47.00 Insomnia, unspecified; Z66 Do not resuscitate; D50.9 Iron deficiency anemia, unspecified

== ENCOUNTER 2024-02-06 14:41 | Emergency (ER) | payer MEDICARE, BC ==
[~2024-02-06] VITALS: Ht 160 cm; Wt 69.0 kg
[~2024-02-06 14:41] MED LIST changes: +AMMO12LO TOP; +CRANCAP4 PO; +LISI20TA33 PO; +MULT-40 PO; +RA M10TA PO; +SYNT88TA2 PO
[2024-02-06 14:42] VITALS: TEMP 97.2
[2024-02-06 17:49] LABS: BASO # 0.1 10^3/uL (0.0-0.2); BASO % 0.8 % (0.0-1.0); EOS # 0.2 10^3/uL (0.0-0.5); EOS % 2.6 % (0.0-3.0); HEMATOCRIT 33.3 % (36.0-47.0); HEMOGLOBIN 11.1 g/dl (12.0-15.5); LYMPH # 2.3 10^3/uL (1.5-5.0); LYMPH % 31.4 % (24.0-44.0); MEAN CORPUSCULAR HEMOGLOBIN 29.6 pg (27.0-33.0); MEAN CORPUSCULAR HGB CONC 33.3 g/dl (32.0-36.5); MEAN CORPUSCULAR VOLUME 88.8 fl (80.0-96.0); MONO # 0.6 10^3/uL (0.0-0.8); MONO % 8.1 % (2.0-8.0); NEUTROPHILS # 4.2 10^3/uL (1.5-8.5); NEUTROPHILS % 56.4 % (36.0-66.0); PLATELET COUNT, AUTOMATED 222 10^3/uL (150-450); RED BLOOD COUNT 3.75 10^6/uL (4.00-5.40); WHITE BLOOD COUNT 7.4 10^3/uL (4.0-10.0)
[2024-02-06 18:23] LABS: ALBUMIN 3.9 G/DL (3.2-5.2); BILIRUBIN,DIRECT 0.1 MG/DL (<0.4); BILIRUBIN,TOTAL 0.4 MG/DL (0.3-1.2); CALCIUM LEVEL 9.2 MG/DL (8.3-10.6); CREATININE FOR GFR 1.06 MG/DL (0.55-1.30); GLOMERULAR FILTRATION RATE 52.8 (>32); POTASSIUM SERUM 3.2 MMOL/L (3.5-5.1); TOTAL PROTEIN 6.5 G/DL (5.7-8.2)
[2024-02-06] MEDS ORDERED: ISOVUE-370 76% 100ML VIAL As Ordered ONE (19:17)
[2024-02-06] MEDS: POTASSIUM CHLORIDE 10MEQ SR TABLET PO ONE (19:40)
[2024-02-06] MEDS: NS 1,000 ML IV SCH (19:43)
[2024-02-06 20:30] VITALS: BP 188/77; O2SAT 97
== END 2024-02-06 21:06 | disposition home or self-care (01) ==
LOC: M ED 14:41
DX: R10.9 Unspecified abdominal pain (principal); E87.6 Hypokalemia; R19.7 Diarrhea, unspecified; I10 Essential (primary) hypertension; E03.9 Hypothyroidism, unspecified; F41.9 Anxiety disorder, unspecified; F32.A Depression, unspecified; Z86.79 Personal history of other diseases of the circulatory system; Z90.89 Acquired absence of other organs; Z87.891 Personal history of nicotine dependence; Z88.8 Allergy status to other drugs, medicaments and biological substances; Z79.811 Long term (current) use of aromatase inhibitors; Z79.899 Other long term (current) drug therapy
CPT/HCPCS: 74021; 74177; 80048; 80076; 83690; 85025; 96360; 99284; Q9967